=== PATIENT | male | born 1955 | race African-American/Black ===

== ENCOUNTER 2017-09-05 13:59 | Inpatient (IN) ==
[2017-09-05 15:06] LABS: Basophils # 0.1 10*3/uL (0.0-0.2); Basophils % 0.5 % (0.0-0.8); Eosinophils # 0.2 10*3/uL (0.0-0.87); Eosinophils % 2.6 % (0.00-10.9); Hematocrit 47.6 VOL% (42.0-52.0); Hemoglobin 15.3 GM/DL (14.0-18.0); Immature Granulocytes % 0.2 %; Immature Granulocytes Absolute 0.02 #; Lymphocytes # 1.6 10*3/uL (1.4-4.0); Mean Corpuscular HGB Conc 32.1 GM/DL (32-36); Mean Corpuscular Hemoglobin 27 PG (27-34); Mean Corpuscular Volume 84.1 FL (87-102); Mean Platelet Volume 9.5 FL (9.6-12.0); Monocytes % 10.2 % (1.7-12.7); Neutrophils # 6.5 10*3/uL (1.4-7.4); Neutrophils % 69.5 % (38.7-73.9); Platelet Count 265 T/CUMM (130-400); Red Blood Count 5.66 MC/CUMM (3.8-5.5); Red Cell Distribution Width 14.1 % (9.3-17.3); White Blood Count 9.3 T/CUMM (4-12)
[2017-09-05 15:32] LABS: Troponin I Only 0.068 NG/ML (0.00-0.045)
[2017-09-05 15:41] LABS: Albumin 3.4 G/DL (3.4-5.0); Bilirubin,Total 0.4 MG/DL (0.2-1.0); Calcium 9.3 MG/DL (8.5-10.1); Osmolality,Calculated 279.4 MOS/KG (273-304); Potassium 4.4 MMOL/L (3.5-5.1); Total Protein 7.7 G/DL (6.4-8.3)
[2017-09-05 15:48] LABS: Apearance,Urine CLEAR (Clear); Bilirubin,Urine Negative (Negative); Blood, Urine Small mg/dL (Negative); Glucose,Urine (UA) Negative (Negative); Ketones,Urine Negative (Negative); Mucus,Urine Occasional /LPF (Occasional); Nitrite,Urine Negative (Negative); Protein,Urine Negative; RBC,Urine 4 /HPF (0-4); Urine Color Yellow (Yellow); Urine Specific Gravity 1.025 (1.001-1.035); Urine Urobilinogen < 2.0 EU/DL (0.2-1.0); WBC,Urine 1 /HPF (0-6)
[2017-09-05 19:39] LABS: Troponin I Only 0.747 NG/ML (0.00-0.045)
[2017-09-06 05:42] LABS: Basophils % 0.5 % (0.0-0.8); Eosinophils # 0.4 10*3/uL (0.0-0.87); Eosinophils % 5.4 % (0.00-10.9); Hematocrit 44.7 VOL% (42.0-52.0); Hemoglobin 14.6 GM/DL (14.0-18.0); Immature Granulocytes % 0.1 %; Immature Granulocytes Absolute 0.01 #; Lymphocytes % 25.9 % (21.2-54.2); Mean Corpuscular HGB Conc 32.7 GM/DL (32-36); Mean Corpuscular Hemoglobin 27 PG (27-34); Mean Corpuscular Volume 82.9 FL (87-102); Mean Platelet Volume 9.9 FL (9.6-12.0); Monocytes # 0.8 10*3/uL (0.11-0.8); Neutrophils # 4.5 10*3/uL (1.4-7.4); Neutrophils % 58.1 % (38.7-73.9); Platelet Count 261 T/CUMM (130-400); Red Blood Count 5.39 MC/CUMM (3.8-5.5); Red Cell Distribution Width 14.1 % (9.3-17.3); White Blood Count 7.8 T/CUMM (4-12)
[2017-09-06 06:04] LABS: CKMB % 5.1 %; Risk Ratio 4.38; VLDL CHOLESTEROL 17.8 MG/DL
[2017-09-06 06:09] LABS: Troponin I Only 1.84 NG/ML (0.00-0.045)
[2017-09-06 09:39] LABS: CKMB % 4.5 %
[2017-09-06 09:42] LABS: Troponin I Only 1.56 NG/ML (0.00-0.045)
[2017-09-06 14:44] LABS: CKMB % 4.8 %
[2017-09-06 14:45] LABS: Troponin I Only 1.37 NG/ML (0.00-0.045)
[2017-09-06 20:32] LABS: CKMB % 7.5 %
[2017-09-06 20:35] LABS: Troponin I Only 2.55 NG/ML (0.00-0.045)
[2017-09-07 04:52] LABS: Basophils % 0.2 % (0.0-0.8); Eosinophils # 0.1 10*3/uL (0.0-0.87); Eosinophils % 1.2 % (0.00-10.9); Hematocrit 42.4 VOL% (42.0-52.0); Hemoglobin 13.9 GM/DL (14.0-18.0); Immature Granulocytes % 0.3 %; Immature Granulocytes Absolute 0.03 #; Lymphocytes # 1.4 10*3/uL (1.4-4.0); Lymphocytes % 13.5 % (21.2-54.2); Mean Corpuscular HGB Conc 32.8 GM/DL (32-36); Mean Corpuscular Hemoglobin 27 PG (27-34); Mean Corpuscular Volume 82.8 FL (87-102); Mean Platelet Volume 9.3 FL (9.6-12.0); Monocytes # 0.9 10*3/uL (0.11-0.8); Monocytes % 8.9 % (1.7-12.7); Neutrophils # 7.9 10*3/uL (1.4-7.4); Neutrophils % 75.9 % (38.7-73.9); Platelet Count 248 T/CUMM (130-400); Red Blood Count 5.12 MC/CUMM (3.8-5.5); Red Cell Distribution Width 14.3 % (9.3-17.3); White Blood Count 10.4 T/CUMM (4-12)
[2017-09-07 05:20] LABS: Calcium 7.9 MG/DL (8.5-10.1); Osmolality,Calculated 278.4 MOS/KG (273-304); Potassium 3.7 MMOL/L (3.5-5.1)
[2017-09-07 05:21] LABS: Calcium 7.6 MG/DL (8.5-10.1); Osmolality,Calculated 276.5 MOS/KG (273-304); Potassium 3.7 MMOL/L (3.5-5.1)
[2017-09-07 05:26] LABS: CKMB % 6.8 %
[2017-09-07 05:28] LABS: Troponin I Only 3.99 NG/ML (0.00-0.045)
[2017-09-08 05:25] LABS: Basophils % 0.3 % (0.0-0.8); Eosinophils # 0.4 10*3/uL (0.0-0.87); Eosinophils % 3.9 % (0.00-10.9); Hematocrit 42.1 VOL% (42.0-52.0); Hemoglobin 14.2 GM/DL (14.0-18.0); Immature Granulocytes % 0.3 %; Immature Granulocytes Absolute 0.03 #; Lymphocytes # 1.5 10*3/uL (1.4-4.0); Lymphocytes % 14.7 % (21.2-54.2); Mean Corpuscular HGB Conc 33.7 GM/DL (32-36); Mean Corpuscular Hemoglobin 27 PG (27-34); Mean Platelet Volume 9.5 FL (9.6-12.0); Neutrophils # 7.2 10*3/uL (1.4-7.4); Neutrophils % 70.8 % (38.7-73.9); Platelet Count 260 T/CUMM (130-400); Red Cell Distribution Width 14.3 % (9.3-17.3); White Blood Count 10.1 T/CUMM (4-12)
[2017-09-08 05:56] LABS: Calcium 8.6 MG/DL (8.5-10.1); Osmolality,Calculated 277.4 MOS/KG (273-304); Potassium 3.8 MMOL/L (3.5-5.1)
[2017-09-08 16:16] VITALS: BP 156/75
== END 2017-09-08 16:47 | disposition home or self-care (01) | DRG 247 ==
LOC: N.TELES 14:30
PROVIDERS: ADMIT Internal Medicine; ATTEND Internal Medicine
PROC: CLCCHCL (ICD-10-PCS; 2017-09-06 11:15)

== ENCOUNTER 2020-11-17 21:19 | Observation (INO) ==
[2020-11-17 21:46] LABS: Basophils # 0.1 10*3/uL (0.0-0.2); Basophils % 0.5 % (0.0-0.8); Eosinophils # 0.3 10*3/uL (0.0-0.87); Eosinophils % 2.7 % (0.00-10.9); Hemoglobin 15.2 GM/DL (14.0-18.0); Immature Granulocytes % 0.5 %; Immature Granulocytes Absolute 0.05 #; Lymphocytes # 2.8 10*3/uL (1.4-4.0); Lymphocytes % 26.6 % (21.2-54.2); Mean Corpuscular HGB Conc 32.3 GM/DL (32-36); Mean Corpuscular Volume 83.8 FL (87-102); Mean Platelet Volume 9.2 FL (9.6-12.0); Neutrophils % 60.7 % (38.7-73.9); Platelet Count 290 T/CUMM (130-400); Red Blood Count 5.61 MC/CUMM (3.8-5.5); Red Cell Distribution Width 13.6 % (9.3-17.3); White Blood Count 10.5 T/CUMM (4-12)
[2020-11-17] MEDS ORDERED: NITROGLYCERIN SL 0.4 MG TABLET SL STA (22:00)
[2020-11-17] MEDS ORDERED: ASPIRIN CHEW 81 MG TABLET PO STA (22:00)
[2020-11-17 22:09] LABS: Albumin 3.8 G/DL (3.4-5.0); Bilirubin,Total 0.6 MG/DL (0.20-1.00); Calcium 9.1 MG/DL (8.5-10.1); Osmolality,Calculated 279.5 MOS/KG (273-304); Potassium 4.2 MMOL/L (3.5-5.1); Total Protein 7.9 G/DL (6.4-8.2)
[2020-11-18] MEDS ORDERED: MORPHINE 2 MG/1 ML SYRINGE IV PRN (00:52)
[2020-11-18] MEDS ORDERED: ONDANSETRON 4 MG/2 ML VIAL IV PRN (00:52)
[2020-11-18] MEDS ORDERED: NITROGLYCERIN SL 0.4 MG TABLET SL PRN (00:52)
[2020-11-18] MEDS ORDERED: ACETAMINOPHEN 325 MG TABLET PO PRN (00:52)
[2020-11-18] MEDS: ASPIRIN EC 81 MG TABLET PO SCH (08:49)
[2020-11-18] MEDS: amLODIPine 5 MG TABLET PO SCH (08:49)
[2020-11-18] MEDS: DOCUSATE SODIUM 100 MG CAPSULE PO SCH ×2 (08:49→20:23)
[2020-11-18] MEDS: hydroCHLOROthiazide 25 MG TABLET PO SCH (08:49)
[2020-11-18] MEDS: VALSARTAN 160 MG TABLET PO SCH (08:49)
[2020-11-18] MEDS: PANTOPRAZOLE 40 MG TABLET PO SCH (08:49)
[2020-11-18] MEDS: SODIUM CHLORIDE 0.45% 1,000 ML IV SCH ×2 (09:30→16:10)
[2020-11-18] MEDS ORDERED: EZETIMIBE 10 MG TABLET PO SCH (21:00)
[2020-11-19] MEDS: SODIUM CHLORIDE 0.45% 1,000 ML IV SCH ×2 (00:13→07:57)
[2020-11-19] MEDS ORDERED: SIMVASTATIN 20 MG TABLET PO SCH (07:13)
[2020-11-19 08:08] VITALS: BP 119/69
[2020-11-19] MEDS: ASPIRIN EC 81 MG TABLET PO SCH (09:25)
[2020-11-19] MEDS: hydroCHLOROthiazide 25 MG TABLET PO SCH (09:25)
[2020-11-19] MEDS: DOCUSATE SODIUM 100 MG CAPSULE PO SCH (09:25)
[2020-11-19] MEDS: VALSARTAN 160 MG TABLET PO SCH (09:25)
[2020-11-19] MEDS: amLODIPine 5 MG TABLET PO SCH (09:25)
[2020-11-19] MEDS: PANTOPRAZOLE 40 MG TABLET PO SCH (09:26)
== END 2020-11-19 10:47 | disposition home or self-care (01) ==
LOC: N.EDINP 21:19 → N.ED 21:19 → N.EDINP 11-18 00:13 → N.TELES 11-18 00:42
PROVIDERS: ADMIT Internal Medicine; ATTEND Internal Medicine